=== PATIENT | male | born 1955 | race African-American/Black ===

== ENCOUNTER 2020-06-01 14:47 | Inpatient (IN) | payer OTHER ==
[2020-06-01 16:40] VITALS: BMI 30.1
[2020-06-01] MEDS ORDERED: NICOTINE POLACRILEX 2 MG GUM BUC PRN (18:22)
[2020-06-01] MEDS ORDERED: MAGNESIUM HYDROX 2400MG/30ML ORAL SUSPENSION 30 ML CUP PO PRN (18:22)
[2020-06-01] MEDS ORDERED: BISMUTH SUBSALICYLATE 524 MG/30 ML UD PO PRN (18:22)
[2020-06-01] MEDS ORDERED: MAGNESIUM CITRATE 300 ML BOTTLE PO PRN (18:22)
[2020-06-01] MEDS ORDERED: MAG HYDROX/AL HYDROX/SIMETH 30 ML UNIT-DOSE CUP PO PRN (18:22)
[2020-06-01] MEDS ORDERED: ONDANSETRON *ODT* 4 MG TABLET SL PRN (18:22)
[2020-06-01] MEDS ORDERED: MENTHOL/PHENOL 1 EACH UD MM PRN (18:22)
[2020-06-01] MEDS ORDERED: METHOCARBAMOL 500 MG TABLET PO PRN (18:22)
[2020-06-01] MEDS ORDERED: ACETAMINOPHEN 325 MG TABLET (FP) PO PRN ×2 (18:22)
[2020-06-01] MEDS ORDERED: IBUPROFEN 400 MG TABLET (FP) PO PRN (18:22)
[2020-06-01] MEDS: chlordiazePOXIDE HCL 25 MG CAPSULE PO PRN (20:24)
[2020-06-01] MEDS: NICOTINE 7 MG/24 HOURS TOPICAL PATCH TD SCH (20:27)
[2020-06-01] MEDS: chlordiazePOXIDE HCL 25 MG CAPSULE PO SCH (22:28)
[2020-06-01] MEDS: hydrOXYzine PAMOATE 25 MG CAPSULE (FP) PO SCH (22:28)
[2020-06-01] MEDS: THIAMINE HCL 100 MG TABLET (FP) PO SCH (22:28)
[2020-06-01] MEDS: MELATONIN 5 MG TABLETS PO SCH (22:28)
[2020-06-02] MEDS: chlordiazePOXIDE HCL 25 MG CAPSULE PO SCH ×4 (06:11→22:13)
[2020-06-02] MEDS: hydrOXYzine PAMOATE 25 MG CAPSULE (FP) PO SCH (06:12)
[2020-06-02] MEDS ORDERED: hydrOXYzine PAMOATE 25 MG CAPSULE (FP) PO PRN (09:07)
[2020-06-02] MEDS ORDERED: PATIENT'S OWN MEDICATION (NON-FORMULARY) (Amlodipine Bes/Olmesartan Med [Amlodipine-Olmesa PO SCH (10:00)
[2020-06-02] MEDS ORDERED: metFORMIN HCL 500 MG TABLET (FP) PO SCH (10:00)
[2020-06-02] MEDS ORDERED: amLODIPine BESYLATE 10 MG TABLET (FP) PO SCH (10:00)
[2020-06-02] MEDS: VALSARTAN 160 MG TABLET PO SCH (10:41)
[2020-06-02] MEDS: PRENATAL VITAMINS W/ FOLIC ACID TABLET (FP) PO SCH (10:41)
[2020-06-02] MEDS: ASPIRIN COATED 81 MG TABLET.EC PO SCH (10:41)
[2020-06-02] MEDS: NICOTINE 7 MG/24 HOURS TOPICAL PATCH TD SCH (10:42)
[2020-06-02] MEDS: CITALOPRAM HYDROBROMIDE 20 MG TABLET PO SCH (12:09)
[2020-06-02 13:06] LABS: HEMATOCRIT 36.5 % (35.4-49); HEMOGLOBIN 12.3 GM/dL (11.7-16.9); MCH 28.2 pg (25.7-33.7); MCHC 33.6 g/dl (32.0-35.9); MEAN PLT VOLUME 8.1 fl (7.5-11.1); PLATELET COUNT 199 K/MM3 (134-434); RBC 4.34 M/mm3 (4.00-5.60); RDW 16.3 % (11.9-15.9); WHITE BLOOD COUNT 6.2 K/mm3 (4.0-10.0)
[2020-06-02 13:07] LABS: POTASSIUM 3.6 mmol/L (3.5-5.1)
[2020-06-02 13:08] LABS: CALCIUM 8.4 mg/dL (8.5-10.1)
[2020-06-02 13:10] LABS: ALBUMIN 2.9 g/dl (3.4-5.0); BLOOD UREA NITROGEN 14.7 mg/dL (7-18)
[2020-06-02 13:12] LABS: CREATININE 1.1 mg/dL (0.55-1.3)
[2020-06-02 13:15] LABS: BILIRUBIN,TOTAL 0.5 mg/dL (0.2-1)
[2020-06-02] MEDS: BUPRENORPHINE/NALOXONE 8 MG/2 MG FILM PACKET SL SCH ×2 (14:45→22:11)
[2020-06-02] MEDS: metFORMIN HCL 500 MG TABLET (FP) PO SCH (18:00)
[2020-06-02] MEDS: chlordiazePOXIDE HCL 25 MG CAPSULE PO PRN (22:11)
[2020-06-02] MEDS: THIAMINE HCL 100 MG TABLET (FP) PO SCH (22:11)
[2020-06-02] MEDS: QUEtiapine FUMARATE 200 MG TABLET PO SCH (22:11)
[2020-06-02] MEDS: MELATONIN 5 MG TABLETS PO SCH (22:13)
[2020-06-03] MEDS: chlordiazePOXIDE HCL 25 MG CAPSULE PO SCH ×4 (05:34→22:04)
[2020-06-03] MEDS: BUPRENORPHINE/NALOXONE 8 MG/2 MG FILM PACKET SL SCH ×3 (05:34→22:04)
[2020-06-03] MEDS: metFORMIN HCL 500 MG TABLET (FP) PO SCH ×2 (06:03→17:58)
[2020-06-03] MEDS: PRENATAL VITAMINS W/ FOLIC ACID TABLET (FP) PO SCH (10:57)
[2020-06-03] MEDS: ASPIRIN COATED 81 MG TABLET.EC PO SCH (10:57)
[2020-06-03] MEDS: NICOTINE 7 MG/24 HOURS TOPICAL PATCH TD SCH (10:58)
[2020-06-03] MEDS: CITALOPRAM HYDROBROMIDE 20 MG TABLET PO SCH (11:04)
[2020-06-03] MEDS: amLODIPine BESYLATE 5 MG TABLET (FP) PO SCH (14:10)
[2020-06-03] MEDS: MELATONIN 5 MG TABLETS PO SCH (22:04)
[2020-06-03] MEDS: THIAMINE HCL 100 MG TABLET (FP) PO SCH (22:04)
[2020-06-03] MEDS: QUEtiapine FUMARATE 200 MG TABLET PO SCH (22:04)
[2020-06-04] MEDS ORDERED: chlordiazePOXIDE HCL 10 MG CAPSULE PO PRN
[2020-06-04] MEDS: BUPRENORPHINE/NALOXONE 8 MG/2 MG FILM PACKET SL SCH ×3 (06:38→22:17)
[2020-06-04] MEDS: metFORMIN HCL 500 MG TABLET (FP) PO SCH ×2 (06:38→17:52)
[2020-06-04] MEDS: chlordiazePOXIDE HCL 10 MG CAPSULE PO SCH ×4 (06:38→22:17)
[2020-06-04] MEDS ORDERED: amLODIPine BESYLATE 5 MG TABLET (FP) PO SCH (10:00)
[2020-06-04] MEDS: CITALOPRAM HYDROBROMIDE 20 MG TABLET PO SCH (10:36)
[2020-06-04] MEDS: VALSARTAN 160 MG TABLET PO SCH (10:36)
[2020-06-04] MEDS: ASPIRIN COATED 81 MG TABLET.EC PO SCH (10:36)
[2020-06-04] MEDS: NICOTINE 7 MG/24 HOURS TOPICAL PATCH TD SCH (10:36)
[2020-06-04] MEDS: amLODIPine BESYLATE 5 MG TABLET (FP) PO SCH (10:37)
[2020-06-04] MEDS: PRENATAL VITAMINS W/ FOLIC ACID TABLET (FP) PO SCH (10:37)
[2020-06-04] MEDS: QUEtiapine FUMARATE 200 MG TABLET PO SCH (22:17)
[2020-06-04] MEDS: MELATONIN 5 MG TABLETS PO SCH (22:17)
[2020-06-04] MEDS: THIAMINE HCL 100 MG TABLET (FP) PO SCH (22:17)
[2020-06-05] MEDS: BUPRENORPHINE/NALOXONE 8 MG/2 MG FILM PACKET SL SCH ×3 (05:44→22:32)
[2020-06-05] MEDS: chlordiazePOXIDE HCL 10 MG CAPSULE PO SCH ×2 (05:44→18:02)
[2020-06-05] MEDS: metFORMIN HCL 500 MG TABLET (FP) PO SCH ×2 (06:00→18:02)
[2020-06-05] MEDS: ASPIRIN COATED 81 MG TABLET.EC PO SCH (10:11)
[2020-06-05] MEDS: VALSARTAN 160 MG TABLET PO SCH ×2 (10:11→10:31)
[2020-06-05] MEDS: CITALOPRAM HYDROBROMIDE 20 MG TABLET PO SCH (10:11)
[2020-06-05] MEDS: NICOTINE 7 MG/24 HOURS TOPICAL PATCH TD SCH (10:11)
[2020-06-05] MEDS: PRENATAL VITAMINS W/ FOLIC ACID TABLET (FP) PO SCH (10:30)
[2020-06-05] MEDS: amLODIPine BESYLATE 5 MG TABLET (FP) PO SCH (10:30)
[2020-06-05] MEDS: QUEtiapine FUMARATE 200 MG TABLET PO SCH (22:31)
[2020-06-05] MEDS: MELATONIN 5 MG TABLETS PO SCH (22:31)
[2020-06-05] MEDS: THIAMINE HCL 100 MG TABLET (FP) PO SCH (22:31)
[2020-06-06] MEDS ORDERED: chlordiazePOXIDE HCL 10 MG CAPSULE PO ONE (05:00)
[2020-06-06] MEDS: BUPRENORPHINE/NALOXONE 8 MG/2 MG FILM PACKET SL SCH (05:40)
[2020-06-06] MEDS: metFORMIN HCL 500 MG TABLET (FP) PO SCH (06:12)
[2020-06-06 09:49] VITALS: BP 135/70; PULSE 82; TEMP 97.5
[2020-06-06] MEDS: VALSARTAN 160 MG TABLET PO SCH (10:33)
[2020-06-06] MEDS: ASPIRIN COATED 81 MG TABLET.EC PO SCH (10:33)
[2020-06-06] MEDS: CITALOPRAM HYDROBROMIDE 20 MG TABLET PO SCH (10:33)
[2020-06-06] MEDS: PRENATAL VITAMINS W/ FOLIC ACID TABLET (FP) PO SCH (10:34)
[2020-06-06] MEDS: NICOTINE 7 MG/24 HOURS TOPICAL PATCH TD SCH (10:34)
[2020-06-06] MEDS: amLODIPine BESYLATE 5 MG TABLET (FP) PO SCH (10:34)
== END 2020-06-06 11:50 | disposition other institution (70) | DRG 773 ==
LOC: YASAS 14:47 → EDBD 14:47 → Y6N 18:58
PROVIDERS: ADMIT Allergy & Immunology; ATTEND Allergy & Immunology
PROC: HZ2ZZZZ Detoxification Services for Substance Abuse Treatment (ICD-10-PCS; principal; 2020-06-01)
DX: F10.230 Alcohol dependence with withdrawal, uncomplicated (principal); F10.282 Alcohol dependence with alcohol-induced sleep disorder; F11.20 Opioid dependence, uncomplicated; F12.10 Cannabis abuse, uncomplicated; F17.210 Nicotine dependence, cigarettes, uncomplicated; F31.9 Bipolar disorder, unspecified; R73.03 Prediabetes; M19.90 Unspecified osteoarthritis, unspecified site; G47.00 Insomnia, unspecified
CPT/HCPCS: 36415; 71046-TC-FY; 80053; 82962; 85027; 86780; 93005; 93010; C9803; U0003

== ENCOUNTER 2020-06-06 11:49 | Inpatient (IN) | payer OTHER ==
[2020-06-06] MEDS ORDERED: LOPERAMIDE HCL 2 MG CAPSULE PO PRN (13:11)
[2020-06-06] MEDS ORDERED: ACETAMINOPHEN 325 MG TABLET (FP) PO PRN (13:11)
[2020-06-06] MEDS ORDERED: MAGNESIUM CITRATE 300 ML BOTTLE PO PRN (13:11)
[2020-06-06] MEDS ORDERED: MAGNESIUM HYDROX 2400MG/30ML ORAL SUSPENSION 30 ML CUP PO PRN (13:11)
[2020-06-06] MEDS ORDERED: NICOTINE POLACRILEX 2 MG GUM BUC PRN (13:11)
[2020-06-06] MEDS ORDERED: MENTHOL/PHENOL 1 EACH UD MM PRN (13:11)
[2020-06-06] MEDS ORDERED: P-EPHED 60MG/TRIPROLIDI 2.5MG TABLET PO PRN (13:11)
[2020-06-06] MEDS ORDERED: MAG HYDROX/AL HYDROX/SIMETH 30 ML UNIT-DOSE CUP PO PRN (13:11)
[2020-06-06] MEDS ORDERED: guaiFENesin 200 MG/10 ML 10 ML UNIT-DOSE CUPS PO PRN (13:11)
[2020-06-06] MEDS ORDERED: FLU VACCINE (FLULAVAL) PF 60 MCG/0.5 ML SYRINGE 2020-2021 IM ONE (13:26)
[2020-06-06] MEDS ORDERED: PNEUMOC 13-VAL CONJ-DIP CRM/PF 0.5 ML DISP.SYRIN IM ONE (13:42)
[2020-06-06] MEDS: BUPRENORPHINE/NALOXONE 8 MG/2 MG FILM PACKET SL SCH ×2 (13:49→21:52)
[2020-06-06] MEDS: metFORMIN HCL 500 MG TABLET (FP) PO SCH (16:27)
[2020-06-06] MEDS: hydrOXYzine PAMOATE 25 MG CAPSULE (FP) PO PRN (16:27)
[2020-06-06] MEDS: THIAMINE HCL 100 MG TABLET (FP) PO SCH (21:51)
[2020-06-06] MEDS: MELATONIN 5 MG TABLETS PO SCH (21:51)
[2020-06-06] MEDS: QUEtiapine FUMARATE 200 MG TABLET PO SCH (21:52)
[2020-06-07] MEDS: metFORMIN HCL 500 MG TABLET (FP) PO SCH ×2 (07:11→17:21)
[2020-06-07] MEDS: BUPRENORPHINE/NALOXONE 8 MG/2 MG FILM PACKET SL SCH ×3 (07:12→21:14)
[2020-06-07] MEDS ORDERED: PT OWN MED DRAWER 7, Y5N ONE (09:27)
[2020-06-07] MEDS ORDERED: PATIENT'S OWN MEDICATION (NON-FORMULARY) (Amlodipine Bes/Olmesartan Med [Amlodipine-Olmesa PO SCH (10:00)
[2020-06-07] MEDS: ASPIRIN COATED 81 MG TABLET.EC PO SCH (11:03)
[2020-06-07] MEDS: amLODIPine BESYLATE 5 MG TABLET (FP) PO SCH (11:03)
[2020-06-07] MEDS: CITALOPRAM HYDROBROMIDE 20 MG TABLET PO SCH (11:03)
[2020-06-07] MEDS: VALSARTAN 160 MG TABLET PO SCH (11:04)
[2020-06-07] MEDS: NICOTINE 7 MG/24 HOURS TOPICAL PATCH TD SCH (11:05)
[2020-06-07] MEDS: PRENATAL VITAMINS W/ FOLIC ACID TABLET (FP) PO SCH (11:05)
[2020-06-07 11:38] LABS: HIV INTERPRETATION NEGATIVE (NEGATIVE)
[2020-06-07] MEDS ORDERED: PNEUMOC 13-VAL CONJ-DIP CRM/PF 0.5 ML DISP.SYRIN IM ONE (12:00)
[2020-06-07] MEDS ORDERED: FLU VACCINE (FLULAVAL) PF 60 MCG/0.5 ML SYRINGE 2020-2021 IM ONE (12:00)
[2020-06-07] MEDS: MELATONIN 5 MG TABLETS PO SCH (21:13)
[2020-06-07] MEDS: THIAMINE HCL 100 MG TABLET (FP) PO SCH (21:13)
[2020-06-07] MEDS: QUEtiapine FUMARATE 200 MG TABLET PO SCH (21:13)
[2020-06-07] MEDS: MINERAL OIL/PETROLAT/WATER TOPICAL CREAM 113 GM JAR TP SCH (21:14)
[2020-06-08] MEDS: BUPRENORPHINE/NALOXONE 8 MG/2 MG FILM PACKET SL SCH ×3 (06:32→21:13)
[2020-06-08] MEDS: metFORMIN HCL 500 MG TABLET (FP) PO SCH ×2 (07:37→16:39)
[2020-06-08] MEDS ORDERED: PT OWN MED DRAWER 7, Y5N ONE (09:18)
[2020-06-08] MEDS: ASPIRIN COATED 81 MG TABLET.EC PO SCH (11:24)
[2020-06-08] MEDS: CITALOPRAM HYDROBROMIDE 20 MG TABLET PO SCH (11:24)
[2020-06-08] MEDS: VALSARTAN 160 MG TABLET PO SCH (11:24)
[2020-06-08] MEDS: amLODIPine BESYLATE 5 MG TABLET (FP) PO SCH (11:24)
[2020-06-08] MEDS: NICOTINE 7 MG/24 HOURS TOPICAL PATCH TD SCH (11:25)
[2020-06-08] MEDS: PRENATAL VITAMINS W/ FOLIC ACID TABLET (FP) PO SCH (11:25)
[2020-06-08] MEDS: MINERAL OIL/PETROLAT/WATER TOPICAL CREAM 113 GM JAR TP SCH ×2 (11:27→21:14)
[2020-06-08] MEDS: hydrOXYzine PAMOATE 25 MG CAPSULE (FP) PO PRN (14:26)
[2020-06-08] MEDS: QUEtiapine FUMARATE 200 MG TABLET PO SCH (21:12)
[2020-06-08] MEDS: MELATONIN 5 MG TABLETS PO SCH (21:12)
[2020-06-08] MEDS: THIAMINE HCL 100 MG TABLET (FP) PO SCH (21:12)
[2020-06-09] MEDS: metFORMIN HCL 500 MG TABLET (FP) PO SCH ×2 (06:59→16:34)
[2020-06-09] MEDS: BUPRENORPHINE/NALOXONE 8 MG/2 MG FILM PACKET SL SCH ×3 (06:59→21:27)
[2020-06-09] MEDS ORDERED: PT OWN MED DRAWER 7, Y5N ONE ×3 (09:03→12:30)
[2020-06-09] MEDS: CITALOPRAM HYDROBROMIDE 20 MG TABLET PO SCH (10:21)
[2020-06-09] MEDS: amLODIPine BESYLATE 5 MG TABLET (FP) PO SCH (10:22)
[2020-06-09] MEDS: PRENATAL VITAMINS W/ FOLIC ACID TABLET (FP) PO SCH (10:22)
[2020-06-09] MEDS: VALSARTAN 160 MG TABLET PO SCH (10:22)
[2020-06-09] MEDS: ASPIRIN COATED 81 MG TABLET.EC PO SCH (10:22)
[2020-06-09] MEDS: NICOTINE 7 MG/24 HOURS TOPICAL PATCH TD SCH (10:23)
[2020-06-09] MEDS: MINERAL OIL/PETROLAT/WATER TOPICAL CREAM 113 GM JAR TP SCH ×2 (11:00→21:28)
[2020-06-09] MEDS: QUEtiapine FUMARATE 200 MG TABLET PO SCH (21:26)
[2020-06-09] MEDS: MELATONIN 5 MG TABLETS PO SCH (21:26)
[2020-06-09] MEDS: THIAMINE HCL 100 MG TABLET (FP) PO SCH (21:26)
[2020-06-10] MEDS: BUPRENORPHINE/NALOXONE 8 MG/2 MG FILM PACKET SL SCH ×3 (06:29→21:09)
[2020-06-10] MEDS: metFORMIN HCL 500 MG TABLET (FP) PO SCH ×2 (06:30→16:27)
[2020-06-10] MEDS: CITALOPRAM HYDROBROMIDE 20 MG TABLET PO SCH (10:33)
[2020-06-10] MEDS: MINERAL OIL/PETROLAT/WATER TOPICAL CREAM 113 GM JAR TP SCH ×2 (10:34→21:09)
[2020-06-10] MEDS: PRENATAL VITAMINS W/ FOLIC ACID TABLET (FP) PO SCH (10:34)
[2020-06-10] MEDS: VALSARTAN 160 MG TABLET PO SCH (10:34)
[2020-06-10] MEDS: ASPIRIN COATED 81 MG TABLET.EC PO SCH (10:34)
[2020-06-10] MEDS: NICOTINE 7 MG/24 HOURS TOPICAL PATCH TD SCH (10:34)
[2020-06-10] MEDS: amLODIPine BESYLATE 5 MG TABLET (FP) PO SCH (10:34)
[2020-06-10] MEDS ORDERED: COLLOIDAL OATMEAL 1 BAR EACH TP PRN (12:37)
[2020-06-10] MEDS: AMOXICILLIN 500 MG CAPSULE (FP) PO SCH ×2 (13:23→21:08)
[2020-06-10] MEDS: THIAMINE HCL 100 MG TABLET (FP) PO SCH (21:08)
[2020-06-10] MEDS: MELATONIN 5 MG TABLETS PO SCH (21:08)
[2020-06-10] MEDS: QUEtiapine FUMARATE 200 MG TABLET PO SCH (21:08)
[2020-06-11] MEDS: BUPRENORPHINE/NALOXONE 8 MG/2 MG FILM PACKET SL SCH ×3 (06:36→21:18)
[2020-06-11] MEDS: AMOXICILLIN 500 MG CAPSULE (FP) PO SCH ×3 (06:36→21:17)
[2020-06-11] MEDS: metFORMIN HCL 500 MG TABLET (FP) PO SCH ×2 (06:36→16:27)
[2020-06-11] MEDS: amLODIPine BESYLATE 5 MG TABLET (FP) PO SCH (10:04)
[2020-06-11] MEDS: ASPIRIN COATED 81 MG TABLET.EC PO SCH (10:04)
[2020-06-11] MEDS: CITALOPRAM HYDROBROMIDE 20 MG TABLET PO SCH (10:04)
[2020-06-11] MEDS: VALSARTAN 160 MG TABLET PO SCH (10:04)
[2020-06-11] MEDS: PRENATAL VITAMINS W/ FOLIC ACID TABLET (FP) PO SCH (10:04)
[2020-06-11] MEDS: NICOTINE 7 MG/24 HOURS TOPICAL PATCH TD SCH (10:05)
[2020-06-11] MEDS: MINERAL OIL/PETROLAT/WATER TOPICAL CREAM 113 GM JAR TP SCH ×2 (10:05→21:19)
[2020-06-11] MEDS: THIAMINE HCL 100 MG TABLET (FP) PO SCH (21:17)
[2020-06-11] MEDS: QUEtiapine FUMARATE 200 MG TABLET PO SCH (21:17)
[2020-06-11] MEDS: MELATONIN 5 MG TABLETS PO SCH (21:17)
[2020-06-12] MEDS: AMOXICILLIN 500 MG CAPSULE (FP) PO SCH ×3 (06:23→21:06)
[2020-06-12] MEDS: BUPRENORPHINE/NALOXONE 8 MG/2 MG FILM PACKET SL SCH ×3 (06:23→21:06)
[2020-06-12] MEDS: metFORMIN HCL 500 MG TABLET (FP) PO SCH ×2 (07:26→17:16)
[2020-06-12] MEDS: VALSARTAN 160 MG TABLET PO SCH (11:01)
[2020-06-12] MEDS: ASPIRIN COATED 81 MG TABLET.EC PO SCH (11:01)
[2020-06-12] MEDS: amLODIPine BESYLATE 5 MG TABLET (FP) PO SCH (11:01)
[2020-06-12] MEDS: NICOTINE 7 MG/24 HOURS TOPICAL PATCH TD SCH (11:02)
[2020-06-12] MEDS: CITALOPRAM HYDROBROMIDE 20 MG TABLET PO SCH (11:02)
[2020-06-12] MEDS: MINERAL OIL/PETROLAT/WATER TOPICAL CREAM 113 GM JAR TP SCH ×2 (11:02→21:06)
[2020-06-12] MEDS: PRENATAL VITAMINS W/ FOLIC ACID TABLET (FP) PO SCH (11:05)
[2020-06-12] MEDS: QUEtiapine FUMARATE 200 MG TABLET PO SCH (21:06)
[2020-06-12] MEDS: THIAMINE HCL 100 MG TABLET (FP) PO SCH (21:06)
[2020-06-12] MEDS: MELATONIN 5 MG TABLETS PO SCH (21:06)
[2020-06-13] MEDS: BUPRENORPHINE/NALOXONE 8 MG/2 MG FILM PACKET SL SCH ×3 (06:19→21:48)
[2020-06-13] MEDS: AMOXICILLIN 500 MG CAPSULE (FP) PO SCH ×3 (06:19→21:47)
[2020-06-13] MEDS: metFORMIN HCL 500 MG TABLET (FP) PO SCH ×2 (06:56→17:11)
[2020-06-13] MEDS: amLODIPine BESYLATE 5 MG TABLET (FP) PO SCH (09:41)
[2020-06-13] MEDS: PRENATAL VITAMINS W/ FOLIC ACID TABLET (FP) PO SCH (09:41)
[2020-06-13] MEDS: ASPIRIN COATED 81 MG TABLET.EC PO SCH (09:42)
[2020-06-13] MEDS: VALSARTAN 160 MG TABLET PO SCH (09:42)
[2020-06-13] MEDS: NICOTINE 7 MG/24 HOURS TOPICAL PATCH TD SCH (09:42)
[2020-06-13] MEDS: CITALOPRAM HYDROBROMIDE 20 MG TABLET PO SCH (09:42)
[2020-06-13] MEDS: MINERAL OIL/PETROLAT/WATER TOPICAL CREAM 113 GM JAR TP SCH ×2 (09:42→21:48)
[2020-06-13] MEDS: THIAMINE HCL 100 MG TABLET (FP) PO SCH (21:47)
[2020-06-13] MEDS: MELATONIN 5 MG TABLETS PO SCH (21:47)
[2020-06-13] MEDS: QUEtiapine FUMARATE 200 MG TABLET PO SCH (21:48)
[2020-06-14] MEDS: AMOXICILLIN 500 MG CAPSULE (FP) PO SCH ×3 (06:49→21:04)
[2020-06-14] MEDS: BUPRENORPHINE/NALOXONE 8 MG/2 MG FILM PACKET SL SCH ×3 (06:49→21:05)
[2020-06-14] MEDS: metFORMIN HCL 500 MG TABLET (FP) PO SCH ×2 (06:51→17:08)
[2020-06-14] MEDS: NICOTINE 7 MG/24 HOURS TOPICAL PATCH TD SCH (10:14)
[2020-06-14] MEDS: ASPIRIN COATED 81 MG TABLET.EC PO SCH (10:14)
[2020-06-14] MEDS: VALSARTAN 160 MG TABLET PO SCH (10:14)
[2020-06-14] MEDS: PRENATAL VITAMINS W/ FOLIC ACID TABLET (FP) PO SCH (10:14)
[2020-06-14] MEDS: amLODIPine BESYLATE 5 MG TABLET (FP) PO SCH (10:14)
[2020-06-14] MEDS: CITALOPRAM HYDROBROMIDE 20 MG TABLET PO SCH (10:14)
[2020-06-14] MEDS: MINERAL OIL/PETROLAT/WATER TOPICAL CREAM 113 GM JAR TP SCH ×2 (10:14→21:05)
[2020-06-14] MEDS: THIAMINE HCL 100 MG TABLET (FP) PO SCH (21:04)
[2020-06-14] MEDS: QUEtiapine FUMARATE 200 MG TABLET PO SCH (21:04)
[2020-06-14] MEDS: MELATONIN 5 MG TABLETS PO SCH (21:04)
[2020-06-15] MEDS: AMOXICILLIN 500 MG CAPSULE (FP) PO SCH ×3 (06:21→21:24)
[2020-06-15] MEDS: BUPRENORPHINE/NALOXONE 8 MG/2 MG FILM PACKET SL SCH ×3 (06:21→21:25)
[2020-06-15] MEDS: metFORMIN HCL 500 MG TABLET (FP) PO SCH ×2 (07:26→16:29)
[2020-06-15] MEDS: ASPIRIN COATED 81 MG TABLET.EC PO SCH (10:04)
[2020-06-15] MEDS: CITALOPRAM HYDROBROMIDE 20 MG TABLET PO SCH (10:04)
[2020-06-15] MEDS: NICOTINE 7 MG/24 HOURS TOPICAL PATCH TD SCH (10:04)
[2020-06-15] MEDS: PRENATAL VITAMINS W/ FOLIC ACID TABLET (FP) PO SCH (10:04)
[2020-06-15] MEDS: VALSARTAN 160 MG TABLET PO SCH (10:04)
[2020-06-15] MEDS: MINERAL OIL/PETROLAT/WATER TOPICAL CREAM 113 GM JAR TP SCH ×2 (10:04→21:25)
[2020-06-15] MEDS: amLODIPine BESYLATE 5 MG TABLET (FP) PO SCH (10:05)
[2020-06-15] MEDS: IBUPROFEN 400 MG TABLET (FP) PO PRN (16:29)
[2020-06-15] MEDS: MELATONIN 5 MG TABLETS PO SCH (21:24)
[2020-06-15] MEDS: QUEtiapine FUMARATE 200 MG TABLET PO SCH (21:24)
[2020-06-15] MEDS: THIAMINE HCL 100 MG TABLET (FP) PO SCH (21:24)
[2020-06-16] MEDS: BUPRENORPHINE/NALOXONE 8 MG/2 MG FILM PACKET SL SCH ×3 (06:35→21:04)
[2020-06-16] MEDS: AMOXICILLIN 500 MG CAPSULE (FP) PO SCH ×3 (06:35→21:04)
[2020-06-16] MEDS: metFORMIN HCL 500 MG TABLET (FP) PO SCH ×2 (06:35→16:47)
[2020-06-16] MEDS: amLODIPine BESYLATE 5 MG TABLET (FP) PO SCH (10:13)
[2020-06-16] MEDS: ASPIRIN COATED 81 MG TABLET.EC PO SCH (10:13)
[2020-06-16] MEDS: VALSARTAN 160 MG TABLET PO SCH (10:13)
[2020-06-16] MEDS: CITALOPRAM HYDROBROMIDE 20 MG TABLET PO SCH (10:13)
[2020-06-16] MEDS: PRENATAL VITAMINS W/ FOLIC ACID TABLET (FP) PO SCH (10:13)
[2020-06-16] MEDS: NICOTINE 7 MG/24 HOURS TOPICAL PATCH TD SCH (10:14)
[2020-06-16] MEDS: MINERAL OIL/PETROLAT/WATER TOPICAL CREAM 113 GM JAR TP SCH ×2 (10:14→21:04)
[2020-06-16] MEDS: MELATONIN 5 MG TABLETS PO SCH (21:04)
[2020-06-16] MEDS: THIAMINE HCL 100 MG TABLET (FP) PO SCH (21:04)
[2020-06-16] MEDS: QUEtiapine FUMARATE 200 MG TABLET PO SCH (21:04)
[2020-06-17] MEDS: BUPRENORPHINE/NALOXONE 8 MG/2 MG FILM PACKET SL SCH ×3 (06:20→21:27)
[2020-06-17] MEDS: AMOXICILLIN 500 MG CAPSULE (FP) PO SCH (06:20)
[2020-06-17] MEDS: metFORMIN HCL 500 MG TABLET (FP) PO SCH ×2 (07:55→16:43)
[2020-06-17] MEDS: amLODIPine BESYLATE 5 MG TABLET (FP) PO SCH (09:31)
[2020-06-17] MEDS: ASPIRIN COATED 81 MG TABLET.EC PO SCH (09:31)
[2020-06-17] MEDS: CITALOPRAM HYDROBROMIDE 20 MG TABLET PO SCH (09:31)
[2020-06-17] MEDS: VALSARTAN 160 MG TABLET PO SCH (09:32)
[2020-06-17] MEDS: PRENATAL VITAMINS W/ FOLIC ACID TABLET (FP) PO SCH (09:32)
[2020-06-17] MEDS: NICOTINE 7 MG/24 HOURS TOPICAL PATCH TD SCH (09:32)
[2020-06-17] MEDS: MINERAL OIL/PETROLAT/WATER TOPICAL CREAM 113 GM JAR TP SCH ×2 (09:34→21:27)
[2020-06-17] MEDS: IBUPROFEN 400 MG TABLET (FP) PO PRN (16:43)
[2020-06-17] MEDS: MELATONIN 5 MG TABLETS PO SCH (21:26)
[2020-06-17] MEDS: THIAMINE HCL 100 MG TABLET (FP) PO SCH (21:26)
[2020-06-17] MEDS: QUEtiapine FUMARATE 200 MG TABLET PO SCH (21:26)
[2020-06-18] MEDS: BUPRENORPHINE/NALOXONE 8 MG/2 MG FILM PACKET SL SCH ×3 (06:08→21:01)
[2020-06-18] MEDS: metFORMIN HCL 500 MG TABLET (FP) PO SCH ×2 (07:04→16:51)
[2020-06-18] MEDS: VALSARTAN 160 MG TABLET PO SCH (09:18)
[2020-06-18] MEDS: CITALOPRAM HYDROBROMIDE 20 MG TABLET PO SCH (09:18)
[2020-06-18] MEDS: MINERAL OIL/PETROLAT/WATER TOPICAL CREAM 113 GM JAR TP SCH ×2 (09:19→21:01)
[2020-06-18] MEDS: NICOTINE 7 MG/24 HOURS TOPICAL PATCH TD SCH (09:19)
[2020-06-18] MEDS: ASPIRIN COATED 81 MG TABLET.EC PO SCH (09:19)
[2020-06-18] MEDS: amLODIPine BESYLATE 5 MG TABLET (FP) PO SCH (09:20)
[2020-06-18] MEDS: PRENATAL VITAMINS W/ FOLIC ACID TABLET (FP) PO SCH (09:20)
[2020-06-18] MEDS ORDERED: HYDROCORTISONE 1% TOPICAL CREAM 30 GM TUBE TP PRN (09:25)
[2020-06-18] MEDS: MELATONIN 5 MG TABLETS PO SCH (21:00)
[2020-06-18] MEDS: QUEtiapine FUMARATE 200 MG TABLET PO SCH (21:00)
[2020-06-18] MEDS: THIAMINE HCL 100 MG TABLET (FP) PO SCH (21:00)
[2020-06-19] MEDS: BUPRENORPHINE/NALOXONE 8 MG/2 MG FILM PACKET SL SCH ×3 (06:25→21:37)
[2020-06-19] MEDS: metFORMIN HCL 500 MG TABLET (FP) PO SCH ×2 (06:27→16:48)
[2020-06-19] MEDS: CITALOPRAM HYDROBROMIDE 20 MG TABLET PO SCH (09:29)
[2020-06-19] MEDS: VALSARTAN 160 MG TABLET PO SCH (09:30)
[2020-06-19] MEDS: ASPIRIN COATED 81 MG TABLET.EC PO SCH (09:30)
[2020-06-19] MEDS: amLODIPine BESYLATE 5 MG TABLET (FP) PO SCH (09:31)
[2020-06-19] MEDS: NICOTINE 7 MG/24 HOURS TOPICAL PATCH TD SCH (09:31)
[2020-06-19] MEDS: MINERAL OIL/PETROLAT/WATER TOPICAL CREAM 113 GM JAR TP SCH ×2 (09:31→21:37)
[2020-06-19] MEDS: PRENATAL VITAMINS W/ FOLIC ACID TABLET (FP) PO SCH (09:32)
[2020-06-19] MEDS: QUEtiapine FUMARATE 200 MG TABLET PO SCH (21:36)
[2020-06-19] MEDS: MELATONIN 5 MG TABLETS PO SCH (21:36)
[2020-06-19] MEDS: THIAMINE HCL 100 MG TABLET (FP) PO SCH (21:36)
[2020-06-20] MEDS: BUPRENORPHINE/NALOXONE 8 MG/2 MG FILM PACKET SL SCH ×3 (06:29→21:02)
[2020-06-20] MEDS: metFORMIN HCL 500 MG TABLET (FP) PO SCH ×2 (06:31→16:45)
[2020-06-20] MEDS: CITALOPRAM HYDROBROMIDE 20 MG TABLET PO SCH (10:08)
[2020-06-20] MEDS: amLODIPine BESYLATE 5 MG TABLET (FP) PO SCH (10:08)
[2020-06-20] MEDS: PRENATAL VITAMINS W/ FOLIC ACID TABLET (FP) PO SCH (10:08)
[2020-06-20] MEDS: ASPIRIN COATED 81 MG TABLET.EC PO SCH (10:08)
[2020-06-20] MEDS: VALSARTAN 160 MG TABLET PO SCH (10:09)
[2020-06-20] MEDS: MINERAL OIL/PETROLAT/WATER TOPICAL CREAM 113 GM JAR TP SCH ×2 (10:11→21:06)
[2020-06-20] MEDS: NICOTINE 7 MG/24 HOURS TOPICAL PATCH TD SCH (10:11)
[2020-06-20] MEDS: THIAMINE HCL 100 MG TABLET (FP) PO SCH (21:05)
[2020-06-20] MEDS: MELATONIN 5 MG TABLETS PO SCH (21:05)
[2020-06-20] MEDS: QUEtiapine FUMARATE 200 MG TABLET PO SCH (21:05)
[2020-06-21] MEDS: metFORMIN HCL 500 MG TABLET (FP) PO SCH ×2 (06:19→16:37)
[2020-06-21] MEDS: BUPRENORPHINE/NALOXONE 8 MG/2 MG FILM PACKET SL SCH ×3 (06:20→21:27)
[2020-06-21] MEDS: ASPIRIN COATED 81 MG TABLET.EC PO SCH (10:33)
[2020-06-21] MEDS: PRENATAL VITAMINS W/ FOLIC ACID TABLET (FP) PO SCH (10:34)
[2020-06-21] MEDS: MINERAL OIL/PETROLAT/WATER TOPICAL CREAM 113 GM JAR TP SCH ×2 (10:34→21:28)
[2020-06-21] MEDS: NICOTINE 7 MG/24 HOURS TOPICAL PATCH TD SCH (10:34)
[2020-06-21] MEDS: CITALOPRAM HYDROBROMIDE 20 MG TABLET PO SCH (10:34)
[2020-06-21] MEDS: amLODIPine BESYLATE 5 MG TABLET (FP) PO SCH (10:34)
[2020-06-21] MEDS: VALSARTAN 160 MG TABLET PO SCH (10:34)
[2020-06-21] MEDS: QUEtiapine FUMARATE 200 MG TABLET PO SCH (21:26)
[2020-06-21] MEDS: MELATONIN 5 MG TABLETS PO SCH (21:26)
[2020-06-21] MEDS: THIAMINE HCL 100 MG TABLET (FP) PO SCH (21:26)
[2020-06-22] MEDS: metFORMIN HCL 500 MG TABLET (FP) PO SCH ×2 (06:05→16:41)
[2020-06-22] MEDS: BUPRENORPHINE/NALOXONE 8 MG/2 MG FILM PACKET SL SCH ×3 (06:05→21:04)
[2020-06-22] MEDS ORDERED: COLLOIDAL OATMEAL 1 BAR EACH TP PRN (08:18)
[2020-06-22] MEDS: PRENATAL VITAMINS W/ FOLIC ACID TABLET (FP) PO SCH (09:54)
[2020-06-22] MEDS: ASPIRIN COATED 81 MG TABLET.EC PO SCH (09:54)
[2020-06-22] MEDS: CITALOPRAM HYDROBROMIDE 20 MG TABLET PO SCH (09:54)
[2020-06-22] MEDS: VALSARTAN 160 MG TABLET PO SCH (09:54)
[2020-06-22] MEDS: amLODIPine BESYLATE 5 MG TABLET (FP) PO SCH (09:54)
[2020-06-22] MEDS: MINERAL OIL/PETROLAT/WATER TOPICAL CREAM 113 GM JAR TP SCH ×2 (09:55→21:53)
[2020-06-22] MEDS: NICOTINE 7 MG/24 HOURS TOPICAL PATCH TD SCH (09:55)
[2020-06-22] MEDS ORDERED: MASKS NR ONE (16:45)
[2020-06-22] MEDS: QUEtiapine FUMARATE 200 MG TABLET PO SCH (21:03)
[2020-06-22] MEDS: MELATONIN 5 MG TABLETS PO SCH (21:04)
[2020-06-22] MEDS: THIAMINE HCL 100 MG TABLET (FP) PO SCH (21:53)
[2020-06-23] MEDS: BUPRENORPHINE/NALOXONE 8 MG/2 MG FILM PACKET SL SCH ×3 (06:14→21:22)
[2020-06-23] MEDS: metFORMIN HCL 500 MG TABLET (FP) PO SCH ×2 (06:16→16:37)
[2020-06-23] MEDS: amLODIPine BESYLATE 5 MG TABLET (FP) PO SCH (10:10)
[2020-06-23] MEDS: PRENATAL VITAMINS W/ FOLIC ACID TABLET (FP) PO SCH (10:10)
[2020-06-23] MEDS: VALSARTAN 160 MG TABLET PO SCH (10:11)
[2020-06-23] MEDS: CITALOPRAM HYDROBROMIDE 20 MG TABLET PO SCH (10:11)
[2020-06-23] MEDS: ASPIRIN COATED 81 MG TABLET.EC PO SCH (10:11)
[2020-06-23] MEDS: NICOTINE 7 MG/24 HOURS TOPICAL PATCH TD SCH (10:12)
[2020-06-23] MEDS: MINERAL OIL/PETROLAT/WATER TOPICAL CREAM 113 GM JAR TP SCH ×2 (10:12→21:22)
[2020-06-23] MEDS: IBUPROFEN 400 MG TABLET (FP) PO PRN (13:52)
[2020-06-23] MEDS: QUEtiapine FUMARATE 200 MG TABLET PO SCH (21:21)
[2020-06-23] MEDS: MELATONIN 5 MG TABLETS PO SCH (21:21)
[2020-06-23] MEDS: THIAMINE HCL 100 MG TABLET (FP) PO SCH (21:21)
[2020-06-24] MEDS: BUPRENORPHINE/NALOXONE 8 MG/2 MG FILM PACKET SL SCH ×3 (06:12→21:00)
[2020-06-24] MEDS: metFORMIN HCL 500 MG TABLET (FP) PO SCH ×2 (06:18→16:56)
[2020-06-24] MEDS ORDERED: PT OWN MED DRAWER 7, Y5N ONE (08:36)
[2020-06-24] MEDS: amLODIPine BESYLATE 5 MG TABLET (FP) PO SCH (10:05)
[2020-06-24] MEDS: CITALOPRAM HYDROBROMIDE 20 MG TABLET PO SCH (10:05)
[2020-06-24] MEDS: PRENATAL VITAMINS W/ FOLIC ACID TABLET (FP) PO SCH (10:05)
[2020-06-24] MEDS: ASPIRIN COATED 81 MG TABLET.EC PO SCH (10:05)
[2020-06-24] MEDS: VALSARTAN 160 MG TABLET PO SCH (10:05)
[2020-06-24] MEDS: MINERAL OIL/PETROLAT/WATER TOPICAL CREAM 113 GM JAR TP SCH ×2 (10:06→21:01)
[2020-06-24] MEDS: NICOTINE 7 MG/24 HOURS TOPICAL PATCH TD SCH (10:06)
[2020-06-24] MEDS: IBUPROFEN 400 MG TABLET (FP) PO PRN (10:07)
[2020-06-24] MEDS: THIAMINE HCL 100 MG TABLET (FP) PO SCH (21:00)
[2020-06-24] MEDS: MELATONIN 5 MG TABLETS PO SCH (21:00)
[2020-06-24] MEDS: QUEtiapine FUMARATE 200 MG TABLET PO SCH (21:00)
[2020-06-25] MEDS: BUPRENORPHINE/NALOXONE 8 MG/2 MG FILM PACKET SL SCH ×3 (06:25→21:23)
[2020-06-25] MEDS: metFORMIN HCL 500 MG TABLET (FP) PO SCH ×2 (06:43→16:43)
[2020-06-25] MEDS ORDERED: PT OWN MED DRAWER 7, Y5N ONE ×2 (08:26→13:36)
[2020-06-25] MEDS: amLODIPine BESYLATE 5 MG TABLET (FP) PO SCH (09:55)
[2020-06-25] MEDS: CITALOPRAM HYDROBROMIDE 20 MG TABLET PO SCH (09:55)
[2020-06-25] MEDS: VALSARTAN 160 MG TABLET PO SCH (09:55)
[2020-06-25] MEDS: ASPIRIN COATED 81 MG TABLET.EC PO SCH (09:55)
[2020-06-25] MEDS: PRENATAL VITAMINS W/ FOLIC ACID TABLET (FP) PO SCH (09:55)
[2020-06-25] MEDS: MINERAL OIL/PETROLAT/WATER TOPICAL CREAM 113 GM JAR TP SCH ×2 (09:56→21:25)
[2020-06-25] MEDS: NICOTINE 7 MG/24 HOURS TOPICAL PATCH TD SCH (09:56)
[2020-06-25] MEDS: IBUPROFEN 400 MG TABLET (FP) PO PRN (13:35)
[2020-06-25] MEDS: THIAMINE HCL 100 MG TABLET (FP) PO SCH (21:23)
[2020-06-25] MEDS: MELATONIN 5 MG TABLETS PO SCH (21:23)
[2020-06-25] MEDS: QUEtiapine FUMARATE 200 MG TABLET PO SCH (21:23)
[2020-06-26] MEDS: BUPRENORPHINE/NALOXONE 8 MG/2 MG FILM PACKET SL SCH ×3 (06:24→21:02)
[2020-06-26] MEDS: metFORMIN HCL 500 MG TABLET (FP) PO SCH ×2 (07:03→16:34)
[2020-06-26] MEDS ORDERED: PT OWN MED DRAWER 7, Y5N ONE (08:36)
[2020-06-26] MEDS: VALSARTAN 160 MG TABLET PO SCH (10:03)
[2020-06-26] MEDS: amLODIPine BESYLATE 5 MG TABLET (FP) PO SCH (10:03)
[2020-06-26] MEDS: PRENATAL VITAMINS W/ FOLIC ACID TABLET (FP) PO SCH (10:03)
[2020-06-26] MEDS: CITALOPRAM HYDROBROMIDE 20 MG TABLET PO SCH (10:03)
[2020-06-26] MEDS: ASPIRIN COATED 81 MG TABLET.EC PO SCH (10:03)
[2020-06-26] MEDS: MINERAL OIL/PETROLAT/WATER TOPICAL CREAM 113 GM JAR TP SCH ×2 (10:05→21:03)
[2020-06-26] MEDS: NICOTINE 7 MG/24 HOURS TOPICAL PATCH TD SCH (10:05)
[2020-06-26] MEDS: IBUPROFEN 400 MG TABLET (FP) PO PRN (13:10)
[2020-06-26] MEDS: THIAMINE HCL 100 MG TABLET (FP) PO SCH (21:02)
[2020-06-26] MEDS: QUEtiapine FUMARATE 200 MG TABLET PO SCH (21:02)
[2020-06-26] MEDS: MELATONIN 5 MG TABLETS PO SCH (21:02)
[2020-06-27] MEDS: IBUPROFEN 400 MG TABLET (FP) PO PRN ×2 (06:27→13:41)
[2020-06-27] MEDS: BUPRENORPHINE/NALOXONE 8 MG/2 MG FILM PACKET SL SCH ×3 (06:27→21:41)
[2020-06-27] MEDS: metFORMIN HCL 500 MG TABLET (FP) PO SCH ×2 (06:47→16:42)
[2020-06-27] MEDS ORDERED: PT OWN MED DRAWER 7, Y5N ONE ×2 (08:30→08:36)
[2020-06-27] MEDS: ASPIRIN COATED 81 MG TABLET.EC PO SCH (10:05)
[2020-06-27] MEDS: MINERAL OIL/PETROLAT/WATER TOPICAL CREAM 113 GM JAR TP SCH ×2 (10:05→21:42)
[2020-06-27] MEDS: PRENATAL VITAMINS W/ FOLIC ACID TABLET (FP) PO SCH (10:05)
[2020-06-27] MEDS: VALSARTAN 160 MG TABLET PO SCH (10:05)
[2020-06-27] MEDS: NICOTINE 7 MG/24 HOURS TOPICAL PATCH TD SCH (10:05)
[2020-06-27] MEDS: CITALOPRAM HYDROBROMIDE 20 MG TABLET PO SCH (10:05)
[2020-06-27] MEDS: amLODIPine BESYLATE 5 MG TABLET (FP) PO SCH (10:05)
[2020-06-27] MEDS: MELATONIN 5 MG TABLETS PO SCH (21:41)
[2020-06-27] MEDS: QUEtiapine FUMARATE 200 MG TABLET PO SCH (21:41)
[2020-06-27] MEDS: THIAMINE HCL 100 MG TABLET (FP) PO SCH (21:41)
[2020-06-28] MEDS: BUPRENORPHINE/NALOXONE 8 MG/2 MG FILM PACKET SL SCH ×3 (06:57→21:02)
[2020-06-28] MEDS: metFORMIN HCL 500 MG TABLET (FP) PO SCH ×2 (07:00→16:55)
[2020-06-28] MEDS: IBUPROFEN 400 MG TABLET (FP) PO PRN (07:03)
[2020-06-28] MEDS ORDERED: PT OWN MED DRAWER 7, Y5N ONE (08:25)
[2020-06-28] MEDS: PRENATAL VITAMINS W/ FOLIC ACID TABLET (FP) PO SCH (10:09)
[2020-06-28] MEDS: VALSARTAN 160 MG TABLET PO SCH (10:10)
[2020-06-28] MEDS: ASPIRIN COATED 81 MG TABLET.EC PO SCH (10:10)
[2020-06-28] MEDS: amLODIPine BESYLATE 5 MG TABLET (FP) PO SCH (10:10)
[2020-06-28] MEDS: CITALOPRAM HYDROBROMIDE 20 MG TABLET PO SCH (10:10)
[2020-06-28] MEDS: NICOTINE 7 MG/24 HOURS TOPICAL PATCH TD SCH (10:10)
[2020-06-28] MEDS: MINERAL OIL/PETROLAT/WATER TOPICAL CREAM 113 GM JAR TP SCH ×2 (10:11→21:02)
[2020-06-28] MEDS: GABAPENTIN 100 MG CAPSULE PO SCH ×2 (14:20→21:01)
[2020-06-28] MEDS: MELATONIN 5 MG TABLETS PO SCH (21:01)
[2020-06-28] MEDS: THIAMINE HCL 100 MG TABLET (FP) PO SCH (21:01)
[2020-06-28] MEDS: QUEtiapine FUMARATE 200 MG TABLET PO SCH (21:01)
[2020-06-29] MEDS: BUPRENORPHINE/NALOXONE 8 MG/2 MG FILM PACKET SL SCH ×3 (06:03→21:17)
[2020-06-29] MEDS: GABAPENTIN 100 MG CAPSULE PO SCH ×3 (06:03→21:16)
[2020-06-29] MEDS: metFORMIN HCL 500 MG TABLET (FP) PO SCH ×2 (06:45→16:31)
[2020-06-29] MEDS ORDERED: PT OWN MED DRAWER 7, Y5N ONE (08:43)
[2020-06-29] MEDS: CITALOPRAM HYDROBROMIDE 20 MG TABLET PO SCH (09:56)
[2020-06-29] MEDS: amLODIPine BESYLATE 5 MG TABLET (FP) PO SCH (09:56)
[2020-06-29] MEDS: PRENATAL VITAMINS W/ FOLIC ACID TABLET (FP) PO SCH (09:56)
[2020-06-29] MEDS: NICOTINE 7 MG/24 HOURS TOPICAL PATCH TD SCH (09:57)
[2020-06-29] MEDS: MINERAL OIL/PETROLAT/WATER TOPICAL CREAM 113 GM JAR TP SCH ×2 (09:57→21:18)
[2020-06-29] MEDS: VALSARTAN 160 MG TABLET PO SCH (09:57)
[2020-06-29] MEDS: ASPIRIN COATED 81 MG TABLET.EC PO SCH (09:57)
[2020-06-29] MEDS: IBUPROFEN 400 MG TABLET (FP) PO PRN (09:58)
[2020-06-29] MEDS: QUEtiapine FUMARATE 200 MG TABLET PO SCH (21:16)
[2020-06-29] MEDS: THIAMINE HCL 100 MG TABLET (FP) PO SCH (21:16)
[2020-06-29] MEDS: MELATONIN 5 MG TABLETS PO SCH (21:16)
[2020-06-30] MEDS: GABAPENTIN 100 MG CAPSULE PO SCH ×3 (07:09→21:36)
[2020-06-30] MEDS: metFORMIN HCL 500 MG TABLET (FP) PO SCH ×2 (07:09→16:27)
[2020-06-30] MEDS: BUPRENORPHINE/NALOXONE 8 MG/2 MG FILM PACKET SL SCH ×3 (07:09→21:37)
[2020-06-30] MEDS ORDERED: PT OWN MED DRAWER 7, Y5N ONE (08:49)
[2020-06-30] MEDS: PRENATAL VITAMINS W/ FOLIC ACID TABLET (FP) PO SCH (09:47)
[2020-06-30] MEDS: amLODIPine BESYLATE 5 MG TABLET (FP) PO SCH (09:47)
[2020-06-30] MEDS: VALSARTAN 160 MG TABLET PO SCH (09:47)
[2020-06-30] MEDS: ASPIRIN COATED 81 MG TABLET.EC PO SCH (09:47)
[2020-06-30] MEDS: CITALOPRAM HYDROBROMIDE 20 MG TABLET PO SCH (09:47)
[2020-06-30] MEDS: IBUPROFEN 400 MG TABLET (FP) PO PRN (09:48)
[2020-06-30] MEDS: MINERAL OIL/PETROLAT/WATER TOPICAL CREAM 113 GM JAR TP SCH ×2 (09:48→21:37)
[2020-06-30] MEDS: NICOTINE 7 MG/24 HOURS TOPICAL PATCH TD SCH (09:48)
[2020-06-30] MEDS: MELATONIN 5 MG TABLETS PO SCH (21:36)
[2020-06-30] MEDS: QUEtiapine FUMARATE 200 MG TABLET PO SCH (21:36)
[2020-06-30] MEDS: THIAMINE HCL 100 MG TABLET (FP) PO SCH (21:36)
[2020-07-01] MEDS: GABAPENTIN 100 MG CAPSULE PO SCH ×3 (06:15→21:04)
[2020-07-01] MEDS: BUPRENORPHINE/NALOXONE 8 MG/2 MG FILM PACKET SL SCH ×3 (06:15→21:04)
[2020-07-01] MEDS: metFORMIN HCL 500 MG TABLET (FP) PO SCH ×2 (06:54→17:03)
[2020-07-01] MEDS: IBUPROFEN 400 MG TABLET (FP) PO PRN (07:16)
[2020-07-01] MEDS ORDERED: PT OWN MED DRAWER 7, Y5N ONE (08:39)
[2020-07-01] MEDS: VALSARTAN 160 MG TABLET PO SCH (10:16)
[2020-07-01] MEDS: ASPIRIN COATED 81 MG TABLET.EC PO SCH (10:16)
[2020-07-01] MEDS: PRENATAL VITAMINS W/ FOLIC ACID TABLET (FP) PO SCH (10:16)
[2020-07-01] MEDS: MINERAL OIL/PETROLAT/WATER TOPICAL CREAM 113 GM JAR TP SCH ×2 (10:16→21:04)
[2020-07-01] MEDS: CITALOPRAM HYDROBROMIDE 20 MG TABLET PO SCH (10:16)
[2020-07-01] MEDS: amLODIPine BESYLATE 5 MG TABLET (FP) PO SCH (10:17)
[2020-07-01] MEDS: NICOTINE 7 MG/24 HOURS TOPICAL PATCH TD SCH (10:17)
[2020-07-01] MEDS: THIAMINE HCL 100 MG TABLET (FP) PO SCH (21:03)
[2020-07-01] MEDS: MELATONIN 5 MG TABLETS PO SCH (21:03)
[2020-07-01] MEDS: QUEtiapine FUMARATE 200 MG TABLET PO SCH (21:04)
[2020-07-02] MEDS: GABAPENTIN 100 MG CAPSULE PO SCH ×3 (06:30→21:33)
[2020-07-02] MEDS: BUPRENORPHINE/NALOXONE 8 MG/2 MG FILM PACKET SL SCH ×3 (06:30→21:34)
[2020-07-02] MEDS: metFORMIN HCL 500 MG TABLET (FP) PO SCH ×2 (07:04→16:36)
[2020-07-02] MEDS ORDERED: PT OWN MED DRAWER 7, Y5N ONE (08:46)
[2020-07-02] MEDS: PRENATAL VITAMINS W/ FOLIC ACID TABLET (FP) PO SCH (10:25)
[2020-07-02] MEDS: amLODIPine BESYLATE 5 MG TABLET (FP) PO SCH (10:25)
[2020-07-02] MEDS: VALSARTAN 160 MG TABLET PO SCH (10:25)
[2020-07-02] MEDS: CITALOPRAM HYDROBROMIDE 20 MG TABLET PO SCH (10:25)
[2020-07-02] MEDS: MINERAL OIL/PETROLAT/WATER TOPICAL CREAM 113 GM JAR TP SCH ×2 (10:26→21:33)
[2020-07-02] MEDS: NICOTINE 7 MG/24 HOURS TOPICAL PATCH TD SCH (10:26)
[2020-07-02] MEDS: ASPIRIN COATED 81 MG TABLET.EC PO SCH (10:26)
[2020-07-02] MEDS: QUEtiapine FUMARATE 200 MG TABLET PO SCH (21:33)
[2020-07-02] MEDS: MELATONIN 5 MG TABLETS PO SCH (21:33)
[2020-07-02] MEDS: THIAMINE HCL 100 MG TABLET (FP) PO SCH (21:33)
[2020-07-03] MEDS: BUPRENORPHINE/NALOXONE 8 MG/2 MG FILM PACKET SL SCH ×3 (06:38→21:09)
[2020-07-03] MEDS: GABAPENTIN 100 MG CAPSULE PO SCH ×3 (06:38→21:08)
[2020-07-03] MEDS: metFORMIN HCL 500 MG TABLET (FP) PO SCH ×2 (06:40→16:31)
[2020-07-03] MEDS ORDERED: PT OWN MED DRAWER 7, Y5N ONE ×2 (08:11→10:19)
[2020-07-03] MEDS: CITALOPRAM HYDROBROMIDE 20 MG TABLET PO SCH (10:17)
[2020-07-03] MEDS: PRENATAL VITAMINS W/ FOLIC ACID TABLET (FP) PO SCH (10:18)
[2020-07-03] MEDS: amLODIPine BESYLATE 5 MG TABLET (FP) PO SCH (10:18)
[2020-07-03] MEDS: VALSARTAN 160 MG TABLET PO SCH (10:18)
[2020-07-03] MEDS: ASPIRIN COATED 81 MG TABLET.EC PO SCH (10:18)
[2020-07-03] MEDS: MINERAL OIL/PETROLAT/WATER TOPICAL CREAM 113 GM JAR TP SCH ×2 (10:19→21:09)
[2020-07-03] MEDS: NICOTINE 7 MG/24 HOURS TOPICAL PATCH TD SCH (10:20)
[2020-07-03] MEDS: QUEtiapine FUMARATE 200 MG TABLET PO SCH (21:07)
[2020-07-03] MEDS: MELATONIN 5 MG TABLETS PO SCH (21:08)
[2020-07-03] MEDS: THIAMINE HCL 100 MG TABLET (FP) PO SCH (21:08)
[2020-07-04] MEDS: GABAPENTIN 100 MG CAPSULE PO SCH ×3 (06:52→21:29)
[2020-07-04] MEDS: BUPRENORPHINE/NALOXONE 8 MG/2 MG FILM PACKET SL SCH ×3 (06:52→21:30)
[2020-07-04] MEDS: metFORMIN HCL 500 MG TABLET (FP) PO SCH ×2 (06:52→16:35)
[2020-07-04] MEDS: PRENATAL VITAMINS W/ FOLIC ACID TABLET (FP) PO SCH (09:38)
[2020-07-04] MEDS: amLODIPine BESYLATE 5 MG TABLET (FP) PO SCH (09:38)
[2020-07-04] MEDS: CITALOPRAM HYDROBROMIDE 20 MG TABLET PO SCH (09:38)
[2020-07-04] MEDS: ASPIRIN COATED 81 MG TABLET.EC PO SCH (09:38)
[2020-07-04] MEDS ORDERED: PT OWN MED DRAWER 7, Y5N ONE (09:39)
[2020-07-04] MEDS: VALSARTAN 160 MG TABLET PO SCH (09:39)
[2020-07-04] MEDS: MINERAL OIL/PETROLAT/WATER TOPICAL CREAM 113 GM JAR TP SCH ×2 (09:41→21:29)
[2020-07-04] MEDS: NICOTINE 7 MG/24 HOURS TOPICAL PATCH TD SCH (09:41)
[2020-07-04] MEDS: THIAMINE HCL 100 MG TABLET (FP) PO SCH (21:28)
[2020-07-04] MEDS: MELATONIN 5 MG TABLETS PO SCH (21:28)
[2020-07-04] MEDS: QUEtiapine FUMARATE 200 MG TABLET PO SCH (21:29)
[2020-07-05] MEDS: metFORMIN HCL 500 MG TABLET (FP) PO SCH (07:00)
[2020-07-05] MEDS: BUPRENORPHINE/NALOXONE 8 MG/2 MG FILM PACKET SL SCH (07:01)
[2020-07-05] MEDS: GABAPENTIN 100 MG CAPSULE PO SCH (07:01)
[2020-07-05 07:07] VITALS: TEMP 97.5
[2020-07-05] MEDS ORDERED: PT OWN MED DRAWER 7, Y5N ONE (08:31)
[2020-07-05] MEDS: amLODIPine BESYLATE 5 MG TABLET (FP) PO SCH (09:05)
[2020-07-05] MEDS: CITALOPRAM HYDROBROMIDE 20 MG TABLET PO SCH (09:05)
[2020-07-05] MEDS: VALSARTAN 160 MG TABLET PO SCH (09:05)
[2020-07-05] MEDS: PRENATAL VITAMINS W/ FOLIC ACID TABLET (FP) PO SCH (09:05)
[2020-07-05] MEDS: ASPIRIN COATED 81 MG TABLET.EC PO SCH (09:05)
[2020-07-05 09:07] VITALS: BP 136/71; PULSE 91
[2020-07-05] MEDS: MINERAL OIL/PETROLAT/WATER TOPICAL CREAM 113 GM JAR TP SCH (09:07)
[2020-07-05] MEDS: NICOTINE 7 MG/24 HOURS TOPICAL PATCH TD SCH (09:07)
== END 2020-07-05 09:20 | disposition home or self-care (01) | DRG 772 ==
LOC: YASAS 11:49 → Y3W 11:50
PROVIDERS: ADMIT Allergy & Immunology; ATTEND Allergy & Immunology
PROC: HZ42ZZZ Group Counseling for Substance Abuse Treatment, Cognitive-Behavioral (ICD-10-PCS; principal; 2020-06-06)
DX: F10.20 Alcohol dependence, uncomplicated (principal); F12.20 Cannabis dependence, uncomplicated; F17.210 Nicotine dependence, cigarettes, uncomplicated; E11.9 Type 2 diabetes mellitus without complications; Z79.84 Long term (current) use of oral hypoglycemic drugs; L25.8 Unspecified contact dermatitis due to other agents; M79.2 Neuralgia and neuritis, unspecified; Z91.013 Allergy to seafood
CPT/HCPCS: 36415; 82962; 87389; 90670; C9803; G0008; G0009; J1644; Q2036; U0003